=== PATIENT | female | born 2000 | race Caucasian/White ===

== ENCOUNTER 2025-07-05 02:23 | Emergency (ER) | payer OTHER, SELFPAY ==
[2025-07-05 02:42] VITALS: BP 138/73; PULSE 89; RESP 18; TEMP 36.8; O2SAT 99; BMI 23.3
[2025-07-05 02:45] LABS: Appearance Urine Clear (Clear)
[2025-07-05 02:46] LABS: Ur HCG Qualitative* Negative (Negative)
--- NOTE | 2025-07-05 02:57 | ED_ITS ---
HPI - Abdominal Pain General Time Seen by Provider: 02:57 Date Seen: 07/05/25 Chief Complaint: Abdominal Pain Stated Complaint: abdominal pain Time Seen by Provider: 07/05/25 02:57 Source: patient Mode of arrival: ambulatory History of Present Illness HPI narrative: Lois is a 24-year-old female with no significant past medical history who presents to the emergency department with her fiance for evaluation of abdominal pain. Patient states that she was in a well state of health last night, went to bed, and then woke up this morning around 1:00 a.m. with severe abdominal pain. Patient describes the pain as a severe sharp abdominal pain in her lower abdomen. Patient states initially she thought she may just have to pass gas or have a bowel movement however she did have a bowel movement with no improvement of symptoms. Patient reports ongoing pain that is worse with movement. Reports nausea but no vomiting. Denies any fever, chills, denies any chest pain, shortness of breath, dysuria, hematuria. Denies any vaginal bleeding, vaginal discharge, no pelvic pain. Patient reports her last menstrual period was on 06/17/2025. Patient is not currently sexually active, denies . Patient concern for appendicitis. Related Data Home Medications ?Medication ?Instructions ?Recorded ?Confirmed No Known Home Medications 07/05/25 1202/20 Allergies Allergy/AdvReac Type Severity Reaction Status Date / Time No Known Drug Allergies Allergy Verified 07/05/25 02:45 Review of Systems Narrative Past medical history, past surgical history, medications, allergies, family history, and social history were reviewed with the patient. No additional pertinent items. A medically appropriate review of systems was performed with pertinent positives and negatives noted in HPI, all other systems negative. [facility] Medical History (Updated 07/05/25 @ 04:12 by Sasha Alex MD) No significant past medical history Surgical History (Updated 07/05/25 @ 02:47 by Main Dailey RN) No significant past surgical history Social History Smoking Status: Never smoker Second hand tobacco smoke exposure: No How often do you have a drink containing alcohol: never AUDIT-C Alcohol total score: 0 Non-prescribed substance use: denies use Exam Narrative: Exam Narrative: General: Afebrile, in distress secondary to pain HEENT: Normocephalic, atraumatic, conjunctiva normal. MMM Neck: non-tender, supple Cardio: regular rate. regular rhythm Resp: Normal work of breathing, no respiratory distress, lungs clear bilaterally, no wheezing, rhonchi, rales Chest/Back: no visual signs of trauma, no midline tenderness, no CVA tenderness Abdomen: soft, non distension, + tenderness to palpation right lower quadrant, no rebound, guarding, no peritoneal signs Neuro: alert and fully oriented. CN II-XII grossly intact. Grossly normal strength and sensation in all extremities. MSK: no deformities. Normal range of motion Integumentary/Skin: no rash visualized, normal color Psych: normal affect, normal behavior Const: Vital Signs, click to edit/add: Vital Signs - 24 hr 07/05/25 02:42 Temperature 98.3 F Pulse Rate [Right Pulse Oximeter] 89 Respiratory Rate 18 Blood Pressure [Ri ght Upper Arm] 138/73 Pulse Oximetry 99 Oxygen Delivery Me thod Room Air Course Vital Signs Vital signs: Initial Vital Signs Temperature 98.3 F 07/05/25 02:42 Temperature Source Temporal Artery Scan 07/05/25 02:42 Pulse Rate 89 07/05/25 02:42 Respiratory Rate 18 07/05/25 02:42 Blood Pressure 138/73 07/05/25 02:42 Blood Pressure Mean 94 07/05/25 02:42 Blood Pressure Position Sitting 07/05/25 02:42 Pulse Oximetry 99 07/05/25 02:42 Oxygen Delivery Method Room Air 07/05/25 02:42 Vital Signs Temperature 98.3 F 07/05/25 02:42 Pulse Rate 89 07/05/25 02:42 Respiratory Rate 18 07/05/25 02:42 Blood Pressure 138/73 07/05/25 02:42 Pulse Oximetry 99 07/05/25 02:42 Oxygen Delivery Method Room Air 07/05/25 02:42 Temperature 98.3 F 07/05/25 02:42 Pulse Rate 89 07/05/25 02:42 Respiratory Rate 18 07/05/25 02:42 Blood Pressure 138/73 07/05/25 02:42 Pulse Oximetry 99 07/05/25 02:42 Oxygen Delivery Method Room Air 07/05/25 02:42 MDM - Abdominal Pain MDM Narrative Medical decision making narrative: Lois is a 24-year-old female with no significant past medical history who presents to the emergency department with her fiance for evaluation of abdominal pain. Upon arrival patient is nontoxic appearing, afebrile, in distress secondary to pain. Patient hemodynamically stable vital signs within normal limits. Differential diagnosis includes but is not limited to appendicitis versus cystitis versus pyelonephritis versus urolithiasis versus constipation versus os the patient versus colitis versus biliary colic among others. Upon arrival patient declined anything for her symptoms. Comprehensive labs, CT imaging performed. Comprehensive labs remarkable for white blood cell count of 4.3, hemoglobin 12.9, potassium 3.5, no other acute metabolic electrolyte abnormality, no transaminitis, normal lipase. Urinalysis with no evidence of acute infection. I personally reviewed interpreted CT scan abdomen pelvis which demonstrates no acute intra-abdominal pathology. No evidence of acute appendicitis. There is prominent pelvic venous vasculature which is nonspecific. May be seen in settin g of pelvic congestion syndrome however patient has no history of similar symptoms so less likely at this time. I discussed results with patient and family. On re-evaluation patient does report improvement of symptoms. Abdomen is soft, nontender, no peritoneal signs. At this time unclear etiology of patient's abdominal pain however no evidence of acute infection, no evidence of anything that would require antibiotics or surgical intervention at this time. Patient does have improvement of symptoms and would like to discharge home. At this time recommend continue supportive care, soft/bland diet and slowly advance as tolerated. Strict return precautions discussed, recommend outpatient follow-up. Patient understands and agrees the plan. Medical Records Attestation: I reviewed the patient's medical records. Lab Data Attestation: I reviewed the patient's lab results. Labs: Lab Results 07/05/25 07/05/25 Range/Units 02:38 03:10 WBC 4.37 L (4.50-11.00) K/uL RBC 4.29 (4.00-5.20) m/uL Hgb 12.9 (12.0-16.0) gm/dL Hct 37.9 (33.0-51.0) % MCV 88 (80-100) fL MCH 30 (26-34) pg MCHC 34 (32-36) gm/dL RDW Coeff of Anton 11.3 L (11.5-15.5) % Plt Count 171 (140-440) K/uL Neut % (Auto) 72.6 H (42.0-72.0) % Lymph % (Auto) 19.2 L (20-44) % [place] % (Auto) 7.3 (0.0-11.0) % Eos % (Auto) 0.5 (0.0-7.0) % Baso % (Auto) 0.2 (0.0-3.0) % Neut # (Auto) 3.20 (1.7-7.0) K/uL Lymph # (Auto) 0.80 L (0.90-2.90) K/uL [place] # (Auto) 0.30 (0.00-0.90) K/UL Eos # (Auto) 0.00 (0.00-0.50) K/uL Baso # (Auto) 0.00 (0.00-0.30) K/uL Abs Immat Gran (auto) 0.00 (0.00-0.30) K/uL Imm/Tot Granulo (auto) 0.2 % Sodium 140 (135-149) mmol/L Potassium 3.5 L (3.6-5.1) mmol/L Chloride 101 (96-114) mmol/L Carbon Dioxide 27 (20-32) mmol/L Anion Gap 12 (7-15) mEq/L BUN 7 (5-24) mg/dL Creatinine 0.5 (0.5-1.5) mg/dL Estimated Creat Clear 158.81 Estimated GFR 136 ml/min Glucose 121 H (60-115) mg/dL Calcium 9.0 (8.4-10.6) mg/dL Total Bilirubin 0.3 (0.1-1.5) mg/dL AST 31 (12-35) U/L ALT 23 (4-35) U/L Alkaline Phosphatase 60 (40-150) U/L Total Protein 6.9 (6.0-8.3) g/dL Albumin 4.5 (3.3-5.0) g/dL Lipase 50 (23-300) U/L Urine Color Yellow (Yellow) Urine Appearance Clear (Clear) Urine pH 7.0 (5.0-8.5) Ur Specific [place] 1.010 (1.000-1.030) Urine Protein Negative (Negative) Urine Glucose (UA) Negative (Negative) Urine Ketones Negative (Negative) Urine Blood Trace-intact A (Negative) Urine Nitrite Negative (Negative) Urine Bilirubin Negative (Negative) Urine Urobilinogen 0.2 (0.2-1.0) Ur Leukocyte Esterase Negative (Negative) Urine RBC 0-2 (0-2) Urine WBC 0-2 (0-5) Ur Squamous Epith Cells None (None-Few) Urine Bacteria None (None) Urine HCG, Qual Negative (Negative) Imaging Data CT scan - abdomen: Attestation: I have reviewed the pertinent imaging results. Radiologist's impression: Patient: Lois Randall MR#: [id number] : 2000 Acct:[id number] Loc: ED Service Date: 07/05/[address]: Ordering Physician: Sasha Alex M.D. Date of Service: 07/05/25 Procedure(s): CT abdomen pelvis w con Accession Number(s): [id number] cc: Argenis Witt PA-C; Sasha Alex M.D.~ For Patients: As a result of the Century Cures Act, medical imaging exams and procedure reports are released immediately into your electronic medical record. You may view this report before your referring provider. If you have questions, please contact your health care provider. INDICATION: Abdominal pain. TECHNIQUE: CT abdomen and pelvis acquired with 69 cc Isovue 370 IV contrast. COMPARISON: None. FINDINGS: Lower chest: Unremarkable. Liver: Unremarkable. Gallbladder and bile ducts: Unremarkable. Pancreas: Unremarkable. Spleen: Unremarkable. Adrenal glands: Unremarkable. Kidneys: Symmetric renal enhancement. No hydronephrosis or hydroureter. No obstructing calculi. GI tract: No bowel obstruction. No suspicious bowel wall thickening. Normal appendix. Vasculature: Grossly patent vasculature. No abdominal aortic aneurysm. Prominent pelvic venous vasculature. Lymph nodes: No suspicious lymphadenopathy. Peritoneum/Abdominal Wall: Small volume pelvic ascites. No pneumoperitoneum. Pelvis: Normal bladder. No suspicious adnexal mass. Bones: No acute abnormality. IMPRESSION: 1. No acute intra-abdominal/pelvic pathology identified. 2. Prominent pelvic venous vasculature, nonspecific, but may be seen in the setting of pelvic congestion syndrome. Please note that all CT scans at this facility use dose modulation, iterative reconstruction, and/or weight-based dosing when appropriate to reduce radiation dose to as low as reasonably achievable. Dictated by Joshua Cowart MD @ 07/05/2025 4:00:34 AM (Electronically Signed) Discharge Plan Discharge Clinical Impression: Lower abdominal pain Patient Disposition: Home, Self-Care Condition: Stable Additional Instructions: Please follow-up with your primary care provider in the next 3-5 days for furthe r evaluation and follow-up. Please call to schedule appointment. Please rest, drink plenty of fluids. Please alternate taking Tylenol 1000 mg and ibuprofen 600 mg every 6 hours as needed for pain. Please return to the emergency department if you develop high fever, severe pain, persistent vomiting, worsening symptoms. It was a pleasure taking care of you today. We hope you feel better soon. Prescriptions: No Action No Known Home Medications Follow Up/Referrals: Argenis Witt PA-C [Primary Care Provider, Pediatrics] Stand Alone Forms: [facility] Info Instructions
--- NOTE | 2025-07-05 03:15 | CRLHL7_ITS ---
For Patients: As a result of the Century Cures Act, medical imaging exams and procedure reports are released immediately into your electronic medical record. You may view this report before your referring provider. If you have questions, please contact your health care provider. INDICATION: Abdominal pain. TECHNIQUE: CT abdomen and pelvis acquired with 69 cc Isovue 370 IV contrast. COMPARISON: None. FINDINGS: Lower chest: Unremarkable. Liver: Unremarkable. Gallbladder and bile ducts: Unremarkable. Pancreas: Unremarkable. Spleen: Unremarkable. Adrenal glands: Unremarkable. Kidneys: Symmetric renal enhancement. No hydronephrosis or hydroureter. No obstructing calculi. GI tract: No bowel obstruction. No suspicious bowel wall thickening. Normal appendix. Vasculature: Grossly patent vasculature. No abdominal aortic aneurysm. Prominent pelvic venous vasculature. Lymph nodes: No suspicious lymphadenopathy. Peritoneum/Abdominal Wall: Small volume pelvic ascites. No pneumoperitoneum. Pelvis: Normal bladder. No suspicious adnexal mass. Bones: No acute abnormality. IMPRESSION: 1. No acute intra-abdominal/pelvic pathology identified. 2. Prominent pelvic venous vasculature, nonspecific, but may be seen in the setting of pelvic congestion syndrome. Please note that all CT scans at this facility use dose modulation, iterative reconstruction, and/or weight-based dosing when appropriate to reduce radiation dose to as low as reasonably achievable. Dictated by Joshua Cowart MD @ 07/05/2025 4:00:34 AM (Electronically Signed)
[2025-07-05 03:22] LABS: Hematocrit* 37.9 % (33.0-51.0); Hemoglobin* 12.9 gm/dL (12.0-16.0); Immature Granulocytes Pct Auto 0.2 %; Mean Corpuscular HGB Conc 34 gm/dL (32-36); Mean Corpuscular Hemoglobin 30 pg (26-34); Mean Corpuscular Volume 88 fL (80-100); RDW Coefficient of Variation % 11.3 % (11.5-15.5); Red Blood Count* 4.29 m/uL (4.00-5.20); White Blood Count* 4.37 K/uL (4.50-11.00)
[2025-07-05 03:36] LABS: Albumin* 4.5 g/dL (3.3-5.0); Chloride* 101 mmol/L (96-114); Immature Granulocytes Abs Auto 0.00 K/uL (0.00-0.30); Lymphocytes Absolute Auto 0.80 K/uL (0.90-2.90); Potassium* 3.5 mmol/L (3.6-5.1); Slide Review Reflex No; Sodium* 140 mmol/L (135-149)
[2025-07-05 03:38] LABS: Blood Urea Nitrogen* 7 mg/dL (5-24); Creatinine* 0.5 mg/dL (0.5-1.5); Est. Creatinine Clearance* 158.81; Estimated Glomerular Filt Rate 136 ml/min
[2025-07-05 03:39] LABS: Alanine Aminotransferase* 23 U/L (4-35); Alkaline Phosphatase* 60 U/L (40-150); Anion Gap 12 mEq/L (7-15); Aspartate Amino Transferase* 31 U/L (12-35); Bilirubin Total* 0.3 mg/dL (0.1-1.5); Calcium* 9.0 mg/dL (8.4-10.6); Carbon Dioxide* 27 mmol/L (20-32); Glucose* 121 mg/dL (60-115); Total Protein* 6.9 g/dL (6.0-8.3)
--- OUTSIDE RECORDS SUMMARY | 2025-07-05 03:51 | XMS_ITS | Clinical Summary ---
Author Organization [facility] Address [address] [place] [address] Care Team Providers Care Hotel [facility] Dining Room Cashier Name Role Phone Argenis Witt Primary Care Provider Allergies Active Allergy Reactions Criticality Noted Date Comments Amoxicillin-Pot Clavulanate Hives 02/15/20 21 Medications No known medications Active Problems Problem Noted Date Diagnosed Date Eating disorder 02/14/2021 Freckles 02/07/2018 Benign microscopic hematuria Encounters Date Type Department Care Team Description 06/03/2025 3:56 PM GEOPHYSICIST - 06/03/2025 11:59 PM GEOPHYSICIST Hospital Encounter [facility] [address] [place] [address] [address] [address] Garo Fortune, PT Chronic right-sided low back pain with right-sided sciatica (Primary Dx) 06/03/2025 Travel 05/13/2025 3:53 PM CDT - 05/13/2025 11:59 PM CDT Hospital Encounter [facility] [address] [facility] [address] [address] Referring, Provider Garo Fortune PT Low back pain; Right leg pain 05/13/2025 Travel 04/29/2025 3:53 PM CDT - 04/29/2025 11:59 PM CDT Hospital Encounter [facility] [address] [facility] [address] [address] Referring, Provider Garo Fortune PT Low back pain; Right leg pain 04/29/2025 Travel 04/15/2025 3:50 PM CDT - 04/15/2025 11:59 PM CDT Hospital Encounter [facility] [address] [facility] [address] [place] [address] Referring, Provider Garo Fortune, PT Low back pain; Right leg pain 04/08/2025 3:53 PM CDT - 04/08/2025 11:59 PM CDT Hospital Encounter [facility] [address] [facility] [address] [place] [address] Referring, Provider Garo Fortune, PT Low back pain; Right leg pain 04/08/2025 Travel from Last 3 Months Immunizations Immunization Administration Dates Next Due COVID-19 vaccine ([facility] 30mcg/0.3mL) PF, MDV 11/22/2020,11/01/2020 DTaP 01/10/2008,06/06/2004 [id number]-BXE (Pediarix) 06/04/2003,04/07/2003,0 01/29/2003 HIB PRP-T (ActHIB,Hiberix) 12/21/2003,,04/07/2003,01/29 Hepatitis A (Peds) 02/07/2018,01/10/2008 Inactivated Polio Vaccine 01/10/2008 Influenza A (H1N1), Inactivated 07/17/2009,06/19 Influenza A (H1N1), Inactiva gregoria (Age >=3 Years) 07/17/2009,06/19/2009 Influenza, IIV3 (Age 6-35 mos) 06/09/2008,2006 Influenza, IIV3 (Age >=3 years) 06/09/2008,06/13 Influenza, IIV4 06/19/2023,,06/16/2021,06/19,07/05/2016,07/17/2014 Influenza, IIV4 (Age 6-35 Mos) 08/03/2013 Influenza,LAIV4 Live Intrana adolph (Flumist) 06/22/2015,08/03/2013,08/01/2012,06/05,06/07/2010 MENINGOCOCCAL VACCINE 2 VIAL [id number] (MENVEO) 02/14/2021,02/17/2015 MMR 01/10/2008,03/07/2004 Pneumococcal conj 7-Valent (Prevnar 7) 1 08/06/2003,06/04/2003,04/07/2003,01/29 Tdap 09/29/2020,02/17/2015 Varicella Vaccine 01/10/2008,12/21/2003 Family History Medical History Relation Name Comments Allergies Father Good Health Father Hypertension Maternal Grandfather Cancer Maternal Grandmother Dec @68 GI Ca Good Health Mother Cancer-colon Paternal Grandfather d Arthritis Paternal Grandmother Relation Name Status Comments Father Alive Maternal Grandfather Alive Maternal Grandmother Mother Alive Paternal Grandfather Paternal Grandmother Alive Social History Tobacco Use Types Packs/Day Years Used Date Smoking Tobacco: Never Smokeless Tobacco: Never Alcohol Use Standard Drinks/Week Comments Yes 0 (1 standard drink = 0.6 oz pur e alcohol) PHQ-2 Answer Date Recorded PHQ-2 TOTAL SCORE 2 06/19/2023 Social Connections Answer Date Recorded Do you often feel lonely or isolated from those around you? 0 06/19/2023 Financial Resource Strain Answer Date R ecorded Difficulty of Paying Living Expenses 3 06/19/2023 Difficulty of Paying Living Expenses Not on file 06/19/2023 Food Insecurity Answer Date Recorded Do you worry your food will run out before you are able to buy more? 1 06/19/2023 Transportation Needs Answer Date Record ed Does lack of transportation keep you from medica l appointments? 1 06/19/2023 Does lack of transportation keep you from work, meetings or getting things that you need? 1 06/19/2023 Housing Stability Answer Date Recorded What is your housing situation today? 1 06/19/2023 Interpersonal Safety Answer Date Record ed Are you being hit, kicked, p ushed or yelled at (see row info)? No 11/24/2024 Interpersonal Safety Abuse 12 - 18 Not on file 11/24/2024 Interpersonal Safety Ambulatory Vulnerability No t on file 11/24/2024 Comments No Sex and Gender Information Value Date Recorded Sex Assigned at Female 11/24/2024 2:35 AM CDT Legal Sex Female 8:33 AM GEOPHYSICIST Gender Identity Female 11/24/2024 2:35 AM CDT Sexual Orientation Straight 11/24/2024 2: 35 AM CDT Occupation Industry Job Start Date Job End Date student Not on file Not on file Not on file Last Filed Vital Signs Vital Sign Reading Time Taken Comments Blood Pressure 127/72 11/24/2024 8:22 AM CDT Pulse 82 11/24/2024 8:22 AM CDT Temperature 36.1 C (97 F) 11/24/2024 8:22 AM CDT Respiratory Rate 16 11/24/2024 8:22 AM CDT Oxygen Saturation 99% 11/24/2024 8:22 AM CDT Inhaled Oxygen Concentration - - Weight 62.1 kg (137 lb) 11/23/2024 1:42 PM CDT Height 165.1 cm (5' 5) 11/24/2024 8:22 AM CDT Body Mass Index 22.8 11/23/2024 1:42 PM CDT Plan of Treatment Upcoming Encounters Date Type Department Care Team (Late st Contact Info) Description 08/03/2025 4:00 PM GEOPHYSICIST Appointment [facility] [address] [facility] [address] [place] [address] Garo Fortune, PT [address] [place] [address] Health Maintenance Due Date Last Done Comments HPV series for age 9-45 (1 - 3-dose series) 2017 Pap test for age 21-65 12/02/2023 BMI (ht and wt on same day) for age 18+ 06/19/2024 06/19/2023, 08/08/2021, 02/14/2021 Depression screening for age 12+ 06/19/2024 06/19/2023, 02/14/2021, 08/12/2019, Additional history exists COVID-19 vaccine series ( season) 2025 09/03/2022, 06/16/2021, 11/22/2020, Additional history exists Influenza Vaccine (#1) 2025 , 09/03/2022, 06/16/2021, Additional history exists Tetanus booster 09/29/2030 09/29/2020, 02/17/2015 RSV vaccine for adults or (1 - 1-dose 75+ series) 2077 Hepatitis B series for 19+ Completed 06/04, 04/07/2003, 01/29/2003 Pneumococcal series for age 6-49 Aged Out 06/06/2004, 06/04/2003, 04/07/2003, Additional history exists No longer eligible based on patient's age to complete this topic HIV for age 15-65 Completed 06/19/2023 Hepatitis C screening for age 18-79 Completed 06/19/2023 Procedures Procedure Name Priority Date/Time Associated Diagnosis Comments ANTI HIV 1/2 Routine 06/19/2023 3:05 PM GEOPHYSICIST Encounter for screening for HIV ANTI HCV Routine 06/19/2023 3:05 PM GEOPHYSICIST Need for hepatitis C screening test from Last 3 Months or Most Recently Relevant to Health Maintenance Results * ANTI HCV (06/19/2023 3:05 PM GEOPHYSICIST) HEPATITIS C ANTIBODY Non-Reacti ve Non-React morgan 06/19/2023 8:50 PM GEOPHYSICIST [facility] Comment:Please note, per www .CDC.gov: If a patient is known to be at high risk of HCV infection, or is symptomatic, and the physician's suspicion of HCV infection is high, HCV RNA testing is often employed and is of diagnostic value, even after an initial negative anti-HCV test result. Blood BLOOD SPECIMEN / Unknown Venipuncture / Unknown 06/19/2023 3:05 PM GEOPHYSICIST 06/19/2023 3:07 PM GEOPHYSICIST us Argenis GRIJALVA SEND OUTS Final Result [facility] [address] [place] [address], * ANTI HIV 1/2 (06/19/2023 3:05 PM GEOPHYSICIST) HIV-1/HIV-2 SCREEN Non-Reacti ve Non-Reacti ve 06/20/2023 12:53 AM GEOPHYSICIST [facility] Comment:HIV-1 p24 and HIV-1/ HIV-2 Ab Not Detected. Blood BLOOD SPECIMEN / Unknown Venipuncture / Unknown 06/19/2023 3:05 PM GEOPHYSICIST 06/19/2023 3:07 PM GEOPHYSICIST us Argenis GRIJALVA SEND OUTS Final Result [facility] [address] [place] [address], from Last 3 Months or Most Recently Relevant to Health Maintenance Insurance [facility] Care Teams Hotel [employer] D[facility] Room Cashier Relationship Specialty Start Date End Date Argenis Witt PA [address] [address] [address] [address] PCP - General Physician Nurse Charge Rn 02/08/21
[2025-07-05 04:21] VITALS: BP 125/74; PULSE 84; RESP 18; TEMP 36.8; O2SAT 99
[2025-07-05 04:22] VITALS: BP 125/74; PULSE 84; RESP 18; TEMP 36.8
== END 2025-07-05 04:22 | disposition home or self-care (01) ==
PROVIDERS: Emergency Provider Emergency Medicine; PCP Physician Assistant
DX: R10.31 Right lower quadrant pain (principal)
CPT/HCPCS: 36415; 74177; 80053; 81001; 81025; 83690; 85025; 99284; 99285; Q9967